=== PATIENT | male | born 1930 | race Caucasian/White ===

== ENCOUNTER 2018-03-18 08:30 | Inpatient (IN) ==
[2018-03-18] MEDS ORDERED: Chlorhexidine Gluconate 2% 1 Pack (2 Cloths) TOPICAL ONE (09:09)
[2018-03-18] MEDS ORDERED: Metoprolol Tartrate 25 MG Tablet PO ONE (09:09)
[2018-03-18] MEDS ORDERED: Dexamethasone PF Inj 10 MG/ML Vial ONE (09:20)
[2018-03-18] MEDS ORDERED: Sodium Chlor 0.9% Inj 250 ML ONE (09:20)
[2018-03-18] MEDS ORDERED: ceFAZolin 2 GM Premix Inj 2 GM/50 ML PIGGYBACK IV.SIG ONE (09:20)
[2018-03-18] MEDS ORDERED: Sodium Chlor 0.9% Inj 40 ML, Bupivacaine Liposo PF 1.3% Inj 20 ML P-ARTICULR SCH ×2 (09:30)
[2018-03-18] MEDS ORDERED: Chlorhexidine 4% Topical 120 APPLIC/120 ML Bottle TOPICAL SCH (09:30)
[2018-03-18] MEDS ORDERED: Sodium Chloride 0.9% 2 ML Flush PRN IV.FLUSH (09:51)
[2018-03-18] MEDS ORDERED: TRANEXAMIC ACID IV.SIG SCH (10:00)
[2018-03-18] MEDS ORDERED: Dexamethasone Inj 20 MG/5 ML Vial IV.PUSH ONE (10:00)
[2018-03-18] MEDS ORDERED: Sodium Chlor 0.9% Inj 500 ML IV.SIG SCH (10:00)
[2018-03-18] MEDS ORDERED: Vancomycin Inj 1,000 MG in Sodium Chlor 0.9% Inj 250 ML IV.SIG SCH (10:00)
[2018-03-18] MEDS ORDERED: SODIUM CHLOR 0.9% IV.SIG SCH (10:00)
[2018-03-18] MEDS ORDERED: ceFAZolin 2 GM Premix Inj 2 GM/50 ML PIGGYBACK IV.SIG SCH (10:00)
[2018-03-18] MEDS ORDERED: HYDROmorphone PF Inj 2 MG/ML Vial ONE (10:53)
[2018-03-18] MEDS ORDERED: Sugammadex Inj 200 MG/2 ML Vial IV.PUSH ONE (10:53)
[2018-03-18] MEDS ORDERED: Bupivacaine/Dextrose 0.75% Inj 2 ML Ampul ONE (11:13)
[2018-03-18] MEDS ORDERED: Tetracaine PF 1% Inj 20 MG/2 ML Ampul ONE (11:14)
[2018-03-18] MEDS ORDERED: Propofol Inj 500 MG/50 ML Vial ONE (11:15)
[2018-03-18] MEDS ORDERED: Phenylephrine/NS 1000 MCG/10ML Syringe IV.PUSH ONE (11:45)
[2018-03-18] MEDS ORDERED: Aluminum/Magnesium/Simethacone Susp 30 ML UDC PO PRN (14:12)
[2018-03-18] MEDS ORDERED: Morphine Inj 4 MG/ML Vial IV.PUSH PRN (14:12)
[2018-03-18] MEDS ORDERED: Post-op Orders (for Pharmacy) OTHER STA (14:12)
[2018-03-18] MEDS ORDERED: Bisacodyl 10 MG Supp RECTAL PRN (14:12)
--- NOTE | 2018-03-18 14:16 | P.OP ---
- Preoperative Diagnosis (1) Osteoarthritis of left hip - Postoperative Diagnosis (1) Osteoarthritis of left hip Date of procedure: 03/18/18 Procedure: Left total hip arthroplasty Anesthesia: spinal Surgeon: Naveen Martinez MD [employer] 365 Consultant: MAX Rivera The surgical procedure was assisted by my Advanced Registered Nurse Practitioner. My FENCE MAKING MACHINE OPERATOR presence was necessary throughout this case for the manipulation and positioning of the surgical extremity. My FENCE MAKING MACHINE OPERATOR was assisting me throughout the duration of this procedure. The skill set of an Advance Registered Nurse Practitioner was medically necessary to complete this procedure. During the surgical case, the epitaxial reactor technician was working at the back table and the Advance Registered Nurse Practitioner was directly assisting me. Operation and Findings: IMPLANT DESCRIPTION: 1. Chama Gription Cup, acetabular size 54. 2. Chama AltrX polyethylene, neutral. 4. Corail femoral stem size 11, no collar, standard offset. 5. Femoral head/neck 36, metal, -2. ESTIMATED BLOOD LOSS: 250 cc. JUSTIFICATION FOR PROCEDURE: The patient has end-stage osteoarthritis to the hip. There is an attached conservative measures pathway form in the chart that describes the nonoperative measures that were undertaken prior to consideration of surgical management. The patient understood the risks and benefits of surgical management. See my office notes for further details. PROCEDURE: The patient was brought back to the operative theatre. Adequate anesthesia was obtained. The patient received intravenous vancomycin and Ancef. The patient was carefully placed on the operative table. The lower extremity was prepped and draped in the usual sterile fashion. Fluoroscopic images were obtained. We made a standard anterior incision over the hip. We dissected through the TFL fascia, exposing the anterior capsule. Arthrotomy was performed in a T-shaped fashion. The capsule was tagged with a #2 FiberWire. End-stage arthritis was identified. Osteotomy was performed through the femoral neck exposing the acetabulum. Remnants of the labrum were resected and osteophytes were removed. We sequentially reamed the acetabulum. We trialed the hip and placed the final cup into position. This was done under fluoroscopic guidance to obtain the appropriate inclination and anteversion. A manhole cover was placed into the acetabular component. We then placed the final polyethylene into position and confirmed that it was well seated. Capsular attachments on the calcar and the inner aspect of the greater trochanter were resected. On the proximal aspect of the femur we used a rongeur , box osteotome, canal finder, sequential broaches and lateralizing rasp. We calcar planed the proximal femur. Then thoroughly irrigated the wound. We trialed the hip with the appropriate size stem. We placed the final stem in to position and trialed again. The hip was stable while it was externally rotated 70 degrees when the leg was lowered to the floor. The final head was applied, and final fluoroscopic images were obtained. The wound was thoroughly irrigated again. Interarticular injection of liposomal bupivacaine was given. The capsule was closed with #2 FiberWire and #1 Vicryl. The deep fascia was closed with a #2 Stratafix, followed by 2-0 Vicryl in the skin and Dermabond dressing. Postop plan is to weight-bear as tolerated. DVT prophylaxis will be performed with SCDs, ROLDAN crawley, early mobilization, and Eliquis 2.5 mg twice daily.
--- NOTE | 2018-03-18 14:33 | XR ---
EXAM DATE: 03/18/2018 2:24 PM EDT AGE/SEX: 87 years / Male INDICATIONS: Left total hip replacement. CLINICAL DATA: This is the patient's initial encounter. Patient reports that signs and symptoms have been present for 1 day and indicates a pain score of Nonresponsive. MEDICAL/SURGICAL HISTORY: Non-responsive. Non-responsive. COMPARISON: No prior exams available for comparison. FINDINGS: 2 AP views of the left hip were obtained and demonstrate the patient status post arthroplasty. The fe moral and acetabular components are intact and in normal alignment. There are radiation seed implants projected over the region the prostate gland. There is soft tissue swelling and skin amparo along t he left lateral hip. CONCLUSION: Expected postoperative changes status post arthroplasty. Electronically signed by: Vikash Rose MD 03/18/2018 2:32 PM EDT
[2018-03-18] MEDS ORDERED: fentaNYL Citrate Inj 100 MCG/2 ML Ampul ONE (14:51)
[2018-03-18] MEDS ORDERED: TRANEXAMIC ACID IV.SIG ONE (15:00)
[2018-03-18] MEDS ORDERED: SODIUM CHLOR 0.9% IV.SIG ONE (15:00)
[2018-03-18] MEDS: Sod Chloride 0.9% Inj 1,000 ML IV.CONT SCH (15:10)
--- NOTE | 2018-03-18 15:33 | XR ---
EXAM DATE: 03/18/2018 3:30 PM EDT AGE/SEX: 87 years / Male INDICATIONS: Post left hip arthroplasty. CLINICAL DATA: This is the patient's subsequent encounter. Patient reports that signs and symptoms h ave been present for 2 days and indicates a pain score of 0/10. MEDICAL/SURGICAL HISTORY: Hypertension. . Left hip arthroplasty. COMPARISON: No prior exams available for comparison. FINDINGS: The patient is status post a bipolar total hip arthroplasty. Prosthesis is well-seated. Alignment is anatomic. A fracture is not appreciated. CONCLUSION: Anatomic alignment following total hip arthroplasty. Rubén Gray MD FACR Electronically signed by: Rubén Gray MD 03/18/2018 3:31 PM EDT
[2018-03-18] MEDS ORDERED: *morphine SULFATE 10 MG/ML PERIprocedure ONLY ONE ×2 (15:54→16:48)
--- NOTE | 2018-03-18 16:24 | P.DCO ---
- Physical Therapy Physical Therapy: Gait training, Transfer training, bed to chair Hip: Total hip Left Lower Extremity Weight Bearing: Weight bearing as tolerated Left Lower Extremity Range of Motion: Active ROM - Nursing Dressing changes: Do not change dressing Additional instructions: First dressing change in the office - Certification Need for Home Health services: I have seen patient Holly Amezquita on 03/18/18. My clinical findings support the need for the requested home health care services because: Need for Home Health Services: Limited ability to care for self, High risk of falls Homebound Certification: I certify that my clinical findings support that this patient is homebound because: Homebound Certification: Post-op weakness, Unsteady gait/balance
[2018-03-18] MEDS: ceFAZolin 1 GM Premix Inj 1 GM/50 ML FROZ.PIGGY IV.SIG SCH (17:41)
[2018-03-18] MEDS ORDERED: *Labetalol HCl Inj 100 MG/20 ML Vial PERIprocedural Use ONLY IV.PUSH ONE (17:48)
[2018-03-18] MEDS ORDERED: Atenolol 25 MG Tablet PO SCH (21:00)
[2018-03-18] MEDS ORDERED: hydroCHLOROthiazide 25 MG Tablet PO SCH (21:00)
[2018-03-18] MEDS ORDERED: Zolpidem Tartrate 5 MG Tablet PO PRN (21:00)
[2018-03-18] MEDS ORDERED: Sodium Chloride 0.9% 2 ML Flush BID IV.FLUSH SCH (21:00)
[2018-03-18] MEDS ORDERED: dilTIAZem CD 120 MG Capsule PO SCH (21:00)
[2018-03-18] MEDS: Senna/Docusate Sodium 8.6/50 MG Tablet PO SCH (22:03)
[2018-03-18] MEDS: Multivitamin/Minerals Therapeutic Tablet PO SCH (22:03)
[2018-03-19] MEDS: ceFAZolin 1 GM Premix Inj 1 GM/50 ML FROZ.PIGGY IV.SIG SCH ×2 (01:01→06:23)
[2018-03-19] MEDS: Sod Chloride 0.9% Inj 1,000 ML IV.CONT SCH (04:29)
--- NOTE | 2018-03-19 07:35 | P.PNOP ---
Subjective Interval history: The patient is resting comfortably in bed in no acute distress. The patient states his pain is managed well. The patient is planning to go home today with home health. Physical Exam Vital signs: Vital Signs 03/18/18 09:33 03/18/18 14:35 03/18/18 14:45 Temperature 98.3 F 97.4 F L Pulse Rate 68 95 H 95 H Respiratory Rate 16 12 16 Blood Pressure 140/69 108/69 118/73 Pulse Oximetry 98 93 L 94 L 03/18/18 15:00 03/18/18 15:15 03/18/18 15:30 Temperature Pulse Rate 96 H 97 H 101 H Respiratory Rate 20 22 28 H Blood Pressure 128/78 123/69 143/78 H Pulse Oximetry 97 96 98 03/18/18 15:45 03/18/18 16:00 03/18/18 16:15 Temperature Pulse Rate 100 H 99 H 104 H Respiratory Rate 28 H 28 H 20 Blood Pressure 132/88 152/91 H 151/76 H Pulse Oximetry 98 99 99 03/18/18 16:30 03/18/18 16:45 03/18/18 17:00 Temperature Pulse Rate 99 H 100 H 98 H Respiratory Rate 19 18 18 Blood Pressure 147/79 H 152/94 H 167/81 H Pulse Oximetry 99 100 100 03/18/18 17:15 03/18/18 17:30 03/18/18 17:45 Temperature 97.4 F L Pulse Rate 107 H 97 H 99 H Respiratory Rate 18 18 20 Blood Pressure 170/90 H 183/97 H 155/84 H Pulse Oximetry 97 94 L 95 03/18/18 20:00 03/19/18 00:00 03/19/18 04:00 Temperature 97.9 F 97.6 F 97.7 F Pulse Rate 92 H 98 H 98 H Respiratory Rate 18 17 18 Blood Pressure 164/94 H 142/80 H 148/94 H Pulse Oximetry 94 L 94 L 96 Intake & Output 03/18/18 03/19/18 03/19/18 18:59 06:59 18:59 Intake Total 1759.89 / 1759.89 50 / 50 Output Total 350 / 350 1425 / 1425 Balance 1409.89 / 1409.89 -1375 / -1375 Weight 98.9 kg 98.7 kg Intake: IV 1459.89 / 1459.89 50 / 50 LR 1000 mL Inj 1,000 ML @ 30 1000 / 1000 mls/hr IV.SIG .Q24H FARIDA Rx#: [id number] Cyklokapron Inj 989 MG In NS 109.89 / 109.89 Inj 100 ML @ 200 mls/hr IV.SIG ONCE FARIDA Rx#:[id number] Vancomycin Inj 1,000 MG In NS 250 / 250 Inj 250 ML @ 250 mls/hr IV.SIG YOUTH SUPPORT WORKER FARIDA Rx#:[id number] Ancef 1 GM Premix Inj 1 gm In 50 / 50 50 / 50 50 ml @ 150 mls/hr IV.SIG Q6H FARIDA Rx#:[id number] Ancef 2 GM Premix Inj 2 gm In 50 / 50 50 ml @ 100 mls/hr IV.SIG YOUTH SUPPORT WORKER FARIDA Rx#:[id number] Oral 200 / 200 Anesthesia Amount 100 / 100 Output: Urine 100 / 100 1425 / 1425 Estimated Blood Loss 250 / 250 Other: Date of Last Bowel Movement 03/17/18 Weight On Admission 98.9 kg Narrative: The patient's dressing is clean, dry, and intact. EHL/TA/G are intact. 2+ pedal pulse. The patient's calf is soft and nontender. Sensation is intact to light touch distally. The patient has some mild ecchymosis and swelling to the left hip. Results - Labs Laboratory Results - last 24 hr 03/18/18 09:35 Blood Type O Positive Blood Type Recheck Required Antibody Screen Negative - Imaging Impressions Hip X-Ray 03/18/18 00:00 CONCLUSION: Expected postoperative changes status post arthroplasty. Hip X-Ray 03/18/18 14:10 CONCLUSION: Anatomic alignment following total hip arthroplasty. Rubén Gray MD FACR - Procedures Left total hip arthroplasty Assessment and Plan - Problem List (1) Status post total hip replacement, left Code(s): Z96.642 - Presence of left artificial hip joint Status: Acute (2) Osteoarthritis of left hip Code(s): M16.12 - Unilateral primary osteoarthritis, left hip Status: Acute - Assessment and Plan POD #1: Left total hip arthroplasty 1. Weightbearing as tolerated on left lower extremity. 2. Eliquis 2.5 mg twice a day for DVT prophylaxis. 3. Ice as needed for swelling. 4. Stable per ortho for discharge to home health today following his class. 5. The patient will follow up with Dr. Martinez and/or MAX Quezada as previously scheduled.
[2018-03-19] MEDS ORDERED: Dexamethasone Inj 20 MG/5 ML Vial IV.PUSH ONE (08:00)
[2018-03-19] MEDS: Senna/Docusate Sodium 8.6/50 MG Tablet PO SCH (08:27)
[2018-03-19] MEDS: Multivitamin/Minerals Therapeutic Tablet PO SCH (08:27)
[2018-03-19] MEDS ORDERED: Atenolol 25 MG Tablet PO SCH (09:00)
[2018-03-19] MEDS ORDERED: hydroCHLOROthiazide 25 MG Tablet PO SCH (09:00)
[2018-03-19] MEDS ORDERED: dilTIAZem CD 120 MG Capsule PO SCH (09:00)
--- NOTE | 2018-03-20 16:49 | P.DS ---
Date of admission: 03/18/18 08:30 Primary care physician: Ayaz Rabago Attending physician on discharge: Naveen Martinez Anticipated date of discharge: 03/19/18 Brief History from admission: The patient was admitted to the hospital for severe OA of the left hip to have a left FIDE. DS: Diagnosis - Discharge Diagnosis (1) Status post total hip replacement, left Status: Acute (2) Osteoarthritis of left hip Status: Acute DS: Summary Hospital Course: The patient was admitted to the hospital for severe osteoarthritis of the [left ] hip to have a [left] total hip arthroplasty. The patient's surgery went well with no complication. The patient is on a [regular] diet. The patient's DVT prophylaxis includes use of [ASA 81 mg BID]. The patient is weightbearing as tolerated. The patient was discharged [home with home health] and will follow up in the office with Dr. Martinez and/or MAX Quezada as previously scheduled. - Time Spent with Patient Total time spent providing and/or coordinating discharge services: Greater than 30 minutes - Quality: VTE Deep Vein Thrombosis/Pulmonary Embolism Present on Admission: No Exam Narrative: The patient's dressing is clean, dry, and intact. EHL/TA/G are intact. 2+ pedal pulse. The patient's calf is soft and nontender. Sensation is intact to light touch distally. The patient has some mild ecchymosis and swelling to the left hip. Results Procedures completed during hospitalization: Left total hip arthroplasty Pending studies at discharge: Pending at discharge 03/18/18 14:56 Surgical [PTH] Routine - Impressions ITS Impressions Hip X-Ray 03/18/18 14:10 CONCLUSION: Anatomic alignment following total hip arthroplasty. Rubén Gray MD FACR Discharge Plan - Discharge Disposition Patient Disposition: W/Home Health Service - Discharge Condition Condition: Stable - Discharge Order Discharge Orders: Discharge Order (Routine); Ordered 03/18/18 Ordered By: Emery Bishop - Discharge Details Anticipated Discharge Date: 03/19/18 - Physicians Team Attending Provider: Naveen Martinez - Rxs /Orders / Referrals /Forms Prescriptions: Continue apixaban [Eliquis] 2.5 mg Tablet 2.5 mg PO DAILY atenolol 25 mg Tablet 25 mg PO DAILY bicalutamide [Casodex] 50 mg Tablet 50 mg PO DAILY cholecalciferol (vitamin D3) [Vitamin D3] 1,000 unit Capsule 5,000 unit PO DAILY diltiazem HCl [Tiazac] 120 mg Capsule,Extended Release 24 Hr 120 mg PO DAILY hydrochlorothiazide 25 mg Tablet 25 mg PO DAILY Discontinued omega 6-cfm-psr-fish oil [Fish Oil] 1,000 mg (120 mg-180 mg) Capsule 1 cap PO DAILY Ambulatory Orders / Order Sets / DME: Adjustable Commode 3-in-1 (1 each) (Routine) Location: Determined by Patient Ordered By: Emery Bishop Walker With Front Wheels (1 each) (Routine) Location: Determined by Patient Ordered By: Emery Bishop Referrals: Ayaz Rabago [Other] - See Instructions Naveen Martinez MD [Physician] - See Instructions (F/U in the office as previously scheduled with Dr. Martinez or Jesus Bishop, HVAC INSTRUCTOR) - Discharge Instructions Patient Printed Instructions: How to Choose and Use a Walker (GEN), Total Hip Replacement (DC) Additional Instructions: REGULAR DIET TOLERATED WEIGHT BEARING TOLERATED TO LEFT LEG KEEP DRESSING CLEAN, DRY, AND INTACT SHOWER ONLY TAKE MEDICATION PRESCRIBED FOLLOW UP WITH MD INSTRUCTED - Post Discharge Care Plan Care Plan Goals: Discharge Care Plan Goals for Total Hip Replacement You had a hip replacement surgery. This means your natural hip was replaced with an artificial joint (prosthesis). You may be recovering at home or in a rehabilitation facility. Either way, you must take care of your new hip. Here are some goals to help you heal well. Directions to Meet your Goals: 1. Activity & Exercises: * Take pain medicine as directed by your doctor. * Dont drive until your doctor says its OK. And never drive while taking opioid pain medicine. * Wear the support stockings you were given in the hospital as directed by your surgeon. * Dont sit for more than 30 to 45 minutes at one time. * Dont lean forward while sitting. * Dont cross your legs. * Keep your feet flat on the floor. Dont turn your foot or leg inward. This stresses your hip joint. * Use an elevated toilet seat for 6 weeks after surgery. * Nap if you are tired, but dont stay in bed all day. * Sit on a firm cushion when you ride in a car and avoid sitting too low. Try not to bend your hip too much when getting in and out of the car. 2. Prevent Falls/Injury: * Follow your doctors orders regarding how much weight to put on the affected leg. * Dont bend at the hip when you bend over. Don't bend at the waist to put on socks and shoes. And avoid picking up items from the floor. * Use a cane, crutches, a walker, or handrails until your balance, flexibility, and strength improve. And remember to ask for help from others when you need it. * Free up your hands so that you can use them to keep balance. Use a vianney pack , apron, or pockets to carry things. * Arrange your household to keep the items you need handy. Keep everything else out of the way. * Remove items that may cause you to fall, such as throw rugs and electrical cords. * Use nonslip bath mats, grab bars, an elevated toilet seat, and a shower chair in your bathroom * Sit on a shower stool or chair when you shower to keep from falling. 3. Precautions: * Prevent infection. Any infection will need to be treated immediately. Call your doctor right away if you think you might have an infection. * Tell your dentist that you have an artificial joint and take antibiotics as prescribed before any dental work. * Tell all your healthcare providers about your artificial joint before any medical procedure. * Maintain a healthy weight. Get help to lose any extra pounds. Added body weight puts stress on the joints. 4. Incision Care: * Prevent infection by washing your hands often. If an infection occurs, it will need to be treated right away. * Call your doctor right away if you think you may have an infection. Symptoms include a fever or an incision that leaks white, green, or yellow fluid. * Don't soak your incision in water until your doctor says its OK. This means no hot tubs, bathtubs, or swimming pools. * Follow your doctor's instructions for changing the dressing. * Dont rub the incision, or apply creams or lotions to it. * If you notice any redness or drainage around the bandage site, contact your surgeon's office immediately. 5. Follow-Up: Do Not miss your follow-up appointment. Keep up with all your appointments and yearly check ups When to call your doctor: Call your doctor right away if you have: Hip pain gets worse Pain or swelling in your calf or leg not related to your incision Tenderness or redness in your calf Fever of 100.4F (38C) or higher, or as directed by your healthcare provider Shaking chills Swelling or redness at the incision site gets worse Fluid draining from the incision Call 911: Call 911 right away if you have: Chest pain Shortness of breath Any pain or tenderness in your calf
== END 2018-03-19 16:14 | disposition home health service (06) ==
LOC: HSDI 08:30 → UNDODISIN 15:08 → N06 18:41
PROVIDERS: ADMIT Orthopaedic Surgery; ATTEND Orthopaedic Surgery